=== PATIENT | female | born 1995 | race Caucasian/White ===

== ENCOUNTER 2018-01-03 14:17 | Inpatient (IN) | payer OTHER ==
[2018-01-03] MEDS ORDERED: LIDOCAINE 1% INJ-PF (10 MG/ML) 30 ML SDV ONE ×2 (14:30→19:37)
[2018-01-03] MEDS ORDERED: OXYTOCIN/NORMAL SALINE 20 UNIT/1,000 ML RTUINJ ONE ×2 (14:30→19:37)
[2018-01-03] MEDS ORDERED: MISOPROSTOL 0.2 MG TABLET ONE ×2 (14:30→19:37)
[2018-01-03] MEDS ORDERED: PENICILLIN G-K 5 MILLION UNIT VIAL ONE ×2 (14:30→18:57)
[2018-01-03] MEDS ORDERED: RINGERS SOLUTION,LACTATED 300 ML IV ONE (14:40)
[2018-01-03] MEDS ORDERED: OXYTOCIN/NORMAL SALINE 20 UNIT/1,000 ML RTUINJ IV PRN ×2 (14:40→22:11)
[2018-01-03] MEDS ORDERED: PENICILLIN G POTASSIUM 5,000,000 UNIT in DEXTROSE 5%-WATER 100 ML IV ONE (14:40)
[2018-01-03] MEDS ORDERED: RINGERS SOLUTION,LACTATED 1,000 ML IV PRN ×2 (14:40)
--- NOTE | 2018-01-03 14:47 | Admission Physical ---
Datetime Report Generated by CPN: 01/03/2018 14:46 CURRENT ADMISSION Chief Complaint: Uterine Contractions; Suspected Ruptured Membranes Indication for Induction: PROM Admit Impression : Term, Intrauterine ; No Active Labor; Ruptured Membranes Admit Plan: Admit to Unit; Initiate Labor Induction Protocol Admit Plan- Other: indicates ROM at 300 am today ALLERGIES Medication Allergies: neomycin sulfate (12/31/2015); bacitracin zinc (12/31/2015); polymyxin B sulfate (12/31/2015); hydrocortisone (12/31/2015); neomycin (12/31/2015); bacitracin (12/31/2015); polymyxin B (12/31/2015) OBSTETRICAL HISTORY EDC: 01/16/2018 00:00 : 2 Para: 1 PHYSICAL EXAM General: Normal HEENT: Normal Neurologic: Normal Thyroid: Normal Heart: Normal Lungs: Normal Breast: Normal Back: Normal Abdomen: Normal Genitourinary Exam: Normal Extremities: Normal DTRs: Normal Pelvic Type: Adequate Vital Signs: Reviewed; Within Normal Limits VAGINAL EXAM Dilatation: 2 Effacement: 50 Station: -2 MEMBRANES Pooling: Positive Membranes: Ruptured Amniotic Fluid Color: Clear FETUS A EGA: 38.1 Monitoring: External US FHR- Baseline: 130 Variability: Moderate 6-25bpm Accelerations: 15X15 Decelerations: None FHR Category: Category I Estimated Weight (gm): 3800 Presentation: Vertex Admit Comment: gbs+ INFORMED CONSENT Signature: with User ID: [email or web address]
[2018-01-03 15:25] LABS: ABSOLUTE EOSINOPHILS # (AUTO) 0.1 10^3/uL (0.0-0.6); ABSOLUTE LYMPHOCYTES (AUTO) 1.3 10^3/uL (0.5-4.7); ABSOLUTE MONOCYTES (AUTO) 0.4 10^3/uL (0.1-1.4); ABSOLUTE NEUT (AUTO) 6.8 10^3/uL (1.7-8.2); BASOPHILS % (AUTO) 0.3 % (0-2); EOSINOPHILS % (AUTO) 0.7 % (0-6); HEMATOCRIT 31.3 % (36.0-47.0); HEMOGLOBIN 10.7 g/dL (12.0-15.5); LYMPHOCYTES % (AUTO) 15.1 % (13-45); MEAN CORPUSCULAR HEMOGLOBIN 29.5 pg (27.0-33.4); MEAN CORPUSCULAR HGB CONC 34.3 g/dL (32.0-36.0); MEAN CORPUSCULAR VOLUME 86 fl (80-97); PLATELET COUNT 190 10^3/uL (150-450); RED BLOOD COUNT 3.64 10^6/uL (3.72-5.28); RED CELL DISTRIBUTION WIDTH 12.5 % (11.5-14.0); SEGMENTED NEUTROPHILS % (AUTO) 78.9 % (42-78); TOTAL CELLS COUNTED % (AUTO) 100 %; WHITE BLOOD COUNT 8.7 10^3/uL (4.0-10.5)
[2018-01-03] MEDS: PENICILLIN G POTASSIUM 2,500,000 UNIT in DEXTROSE 5%-WATER 50 ML IV SCH (19:04)
[2018-01-03] MEDS ORDERED: FENTANYL CITRATE INJ/PF 100 MCG/2 ML AMPUL ONE (19:35)
[2018-01-03] MEDS ORDERED: FENTANYL/BUPIVACAINE/NS/PF 300 MCG/150 ML RTUINJ EPI ONE (19:36)
[2018-01-03] MEDS ORDERED: BUPIVACAINE HCL 0.25 % INJ/PF (2.5 MG/1 ML) 30 ML VIAL ONE (19:36)
[2018-01-03] MEDS ORDERED: EPHEDRINE SULFATE INJ 50 MG/1 ML AMPULE ONE (19:36)
[2018-01-03] MEDS ORDERED: NA PHOS,M-B/NA PHOS,DI-BA (ADULT) 133 ML ENEMA PR PRN (22:11)
[2018-01-03] MEDS ORDERED: PROMETHAZINE HCL INJ 25 MG/1 ML VIAL IV PRN (22:11)
[2018-01-03] MEDS ORDERED: ACETAMINOPHEN WITH CODEINE #3 TABLET PO PRN ×2 (22:11)
[2018-01-03] MEDS ORDERED: MAGNESIUM HYDROXIDE SUSP 30 ML UDCUP PO PRN (22:11)
[2018-01-03] MEDS ORDERED: PROMETHAZINE HCL 25 MG SUPP.RECT PR PRN (22:11)
[2018-01-03] MEDS ORDERED: DIPH/PERTUSS(ACELL)/TETANUS VAC/PF 0.5 ML SYR (>=10YO) IM PRN (22:11)
[2018-01-03] MEDS ORDERED: BENZOCAINE/MENTHOL AEROSOL SPRAY 56 ML TOP PRN (22:11)
[2018-01-03] MEDS ORDERED: DIBUCAINE 1% OINTMENT 28 GM TP PRN (22:11)
[2018-01-03] MEDS ORDERED: ACETAMINOPHEN 650 MG SUPP.RECT PR PRN (22:11)
[2018-01-03] MEDS ORDERED: PROMETHAZINE HCL 25 MG TABLET PO PRN (22:11)
[2018-01-03] MEDS ORDERED: MEASLES,MUMPS&RUBELLA VACC/PF 0.5 ML VIAL SUBCUT PRN (22:11)
[2018-01-03] MEDS ORDERED: GLYCERIN/WITCH HAZEL LEAF 1 EACH MED..PAD TP PRN (22:11)
[2018-01-03] MEDS ORDERED: ZOLPIDEM TARTRATE 5 MG TABLET PO PRN (22:11)
[2018-01-03] MEDS ORDERED: DIPHENHYDRAMINE HCL 25 MG CAPSULE PO PRN (22:11)
[2018-01-03] MEDS ORDERED: PSEUDOEPHEDRINE HCL 30 MG TABLET PO PRN (22:11)
[2018-01-03] MEDS ORDERED: IBUPROFEN 800 MG TABLET ONE (23:01)
--- NOTE | 2018-01-04 00:03 | Warning Signs in Babies ---
VOD Warning Signs Datetime Report Generated by [facility]: 01/04/2018 00:03 VOD#608 -Warning Signs in Babies: Needs to be viewed. (01/03/2018 14:19:Mary Cardoza RN)
[2018-01-04] MEDS: PENICILLIN G POTASSIUM 2,500,000 UNIT in DEXTROSE 5%-WATER 50 ML IV SCH ×2 (00:57→03:51)
[2018-01-04] MEDS: IBUPROFEN 800 MG TABLET PO SCH ×3 (05:26→21:24)
--- NOTE | 2018-01-04 07:47 | Delivery Summary ---
Del Sum A-C Datetime Report Generated by CPN: 01/04/2018 07:46 DELIVERY PERSONNEL DELIVERY PERSONNEL: [id number] Delivery Doctor:: Zenaida Hutchison MD Labor and Delivery Nurse:: Mary Cardoza RN Labor and Delivery Nurse:: Shaista Bhatti RN Humanities Division Chair/PREVENTION SPECIALIST: Ximena Meyersa, PREVENTION SPECIALIST MATERNAL INFORMATION Delivery Anesthesia: Epidural Medications After Delivery: Pitocin Drip 20 Units/1000ml NSS Estimated Blood Loss (ml): 200 Maternal Complications: None LABOR SUMMARY EDC: 01/16/2018 00:00 No. Babies in Womb: 1 Attempted: No Labor Anesthesia: Epidural LABOR INFORMATION Reason for Induction: Not Applicable Onset of Labor: 01/03/2018 03:00 Complete Dilatation: 01/03/2018 21:55 Oxytocin: Augmentation Group B Beta Strep: positive Antibiotics # of Doses: 2 Antibiotics Time of Last Dose: 1908 Name of Antibiotic Given: PCN Steroids Given: None Reason Steroids Not Administered: Not Applicable MEMBRANES Membranes Rupture Method: Spontaneous Rupture of Membranes: 01/03/2018 03:00 Length of Rupture (hr): 19.05 Amniotic Fluid Color: Clear Amniotic Fluid Amount: Small Amniotic Fluid Odor: Normal STAGES OF LABOR Stage 1 hr: 18 Stage 1 min: 55 Stage 2 hr: 0 Stage 2 min: 8 Stage 3 hr: 0 Stage 3 min: 4 Total Time in Labor hr: 19 Total Time in Labor min: 7 VAGINAL DELIVERY Episiotomy: None Episiotomy: None Laceration #1: None Laceration #1: None Laceration Extension #1: N/A Laceration Extension #1: N/A Laceration Repair: Not Applicable Laceration Repair: Not Applicable Sponge Count Correct: N/A Sharps Count Correct: N/A CSECTION DELIVERY Primary Indication: N/A Secondary Indication: N/A CSection Incidence: N/A Labor: N/A Elective: N/A CSection Incision: N/A BABY A INFORMATION Delivery Date/Time: 01/03/2018 22:03 Method of Delivery: Vaginal Method of Delivery: Vaginal Born in Route : No : N/A Forceps: N/A Vacuum Extraction: N/A Shoulder Dystocia : No PRESENTATION/POSITION BABY A Presentation: Cephalic Cephalic Presentation: Vertex Vertex Position: Right Occipital Anterior Breech Presentation: N/A PLACENTA INFORMATION BABY A Placenta Delivery Time : 01/03/2018 22:07 Placenta Method of Delivery: Spontaneous Placenta Method of Delivery: Spontaneous Placenta Status: Delivered SCORES BABY A Heart Rate 1 min: >100 bpm Resp Effort 1 min: Good Cry Reflex Irritability 1 min: Cough or Sneeze or Pulls Away Muscle Tone 1 min: Active Motion Color 1 min: Blue/Pale Resuscitation Effort 1 min: Tactile Stimulation SCORE 1 MIN: 8 Heart Rate 5 min: >100 bpm Resp Effort 5 min: Good Cry Reflex Irritability 5 min: Cough or Sneeze or Pulls Away Muscle Tone 5 min: Active Motion Color 5 min: Body Hendrum, Extremities Blue Resuscitation Effort 5 min: Tactile Stimulation SCORE 5 MIN: 9 INFANT INFORMATION BABY A Gestational Age at Delivery: 38.1 Gestational Status: Early Term- 37- 38.6 Weeks Outcome : Liveborn Infant Condition : Stable Sex: Male Infant Sex: Male IDENTIFICATION BABY A Infant Verification Date/Time: 01/03/2018 22:28 ID Band Number: [id number] Mother's Name Verified: Yes Infant RN Verifying : C. Abdonilin, RN Additional Verifying Personnel: D. Shavon WEIGHT/LENGTH BABY A Birthweight (gm): 2570 Infant Birthweight (gm): 2570 Infant Weight (lb): 5 Infant Weight (oz): 11 Infant Length (in): 19.00 Length (cm): 48.26 CORD INFORMATION BABY A No. Cord Vessels: 3 Nuchal Cord : N/A Cord Blood Taken: Yes-For Eval (Mom's Blood Type - or O+) ASSESSMENT BABY A Skin to Skin: Yes Skin to Skin: Yes BABY B INFORMATION : N/A SIGNATURES Signature: Electronically signed by Zenaida Hutchison MD (COUNTS INCLUDE 234 BEDS AT THE [facility]) on 01/03/2018 at 22:18 with User ID: [email or web address]
[2018-01-04 08:22] LABS: HEMATOCRIT 27.7 % (36.0-47.0); HEMOGLOBIN 9.6 g/dL (12.0-15.5); MEAN CORPUSCULAR HEMOGLOBIN 29.8 pg (27.0-33.4); MEAN CORPUSCULAR HGB CONC 34.8 g/dL (32.0-36.0); MEAN CORPUSCULAR VOLUME 86 fl (80-97); PLATELET COUNT 153 10^3/uL (150-450); RED BLOOD COUNT 3.22 10^6/uL (3.72-5.28); RED CELL DISTRIBUTION WIDTH 12.6 % (11.5-14.0); WHITE BLOOD COUNT 9.4 10^3/uL (4.0-10.5)
[2018-01-04] MEDS: LEVOTHYROXINE SODIUM 0.1 MG TABLET PO SCH (08:57)
[2018-01-04] MEDS: SENNOSIDES/DOCUSATE 8.6-50 MG 1 EACH TABLET PO SCH (09:34)
[2018-01-04] MEDS: DOCUSATE SODIUM 100 MG CAPSULE PO SCH ×2 (09:34→17:48)
[2018-01-04] MEDS: PRENATAL VITAMIN W DHA CAPSULE PO SCH (09:35)
[2018-01-04] MEDS: FAMOTIDINE 20 MG TABLET PO SCH ×2 (09:35→21:24)
[2018-01-04] MEDS: FERROUS SULFATE 325 MG TABLET PO SCH ×2 (09:35→17:48)
[2018-01-04] MEDS ORDERED: DILTIAZEM HCL 120 MG CAP.SR.24H PO SCH (10:00)
--- NOTE | 2018-01-04 10:03 | PDOC PROGRESS REPORT ---
Subjective-OB Progress Note for:: 01/04/18 Subjective: reports well, bleeding slowing, pain controlled with current meds. denies need for cardizem-states she has not taken BP meds since last delivery. med d/c'd Physical Exam (OB) Vital Signs: Temp Pulse Resp BP Pulse Ox 97.7 F 74 16 118/84 100 01/04/18 07:40 01/04/18 07:40 01/04/18 07:40 01/04/18 07:40 01/04/18 07:40 - Abdomen Description: Soft, Round Fundal Description: Firm Fundal Height: u/u - u/2 - Abdominal Distension: No distension Tenderness: Nontender - Extremities Lower extremities: Kemar's sign - neg Calf: Normal, Nontender Objective-Diagnostic Laboratory: 01/04/18 08:07 01/03/18 01/03/18 01/04/18 15:07 15:07 08:07 WBC 8.7 9.4 RBC 3.64 L 3.22 L Hgb 10.7 L 9.6 L Hct 31.3 L 27.7 L MCV 86 86 MCH 29.5 29.8 MCHC 34.3 34.8 RDW 12.5 12.6 Plt Count 190 153 Seg Neutrophils % 78.9 H Lymphocytes % 15.1 Monocytes % 5.0 Eosinophils % 0.7 Basophils % 0.3 Absolute Neutrophils 6.8 Absolute Lymphocytes 1.3 Absolute Monocytes 0.4 Absolute Eosinophils 0.1 Absolute Basophils 0.0 Blood Type O POSITIVE Antibody Screen NEGATIVE Assessment and Plan(PN) - Assessment and Plan (1) Delivery normal Is this a current diagnosis for this admission?: Yes (2) Hypothyroidism Is this a current diagnosis for this admission?: Yes - Time Spent with Patient Time with patient: Less than 15 minutes - Disposition Anticipated Discharge: Home Within: within 24 hours
[2018-01-04] MEDS ORDERED: PROMETHAZINE HCL INJ 25 MG/1 ML VIAL IV PRN (10:30)
[2018-01-04] MEDS ORDERED: MEASLES,MUMPS&RUBELLA VACC/PF 0.5 ML VIAL SUBCUT PRN (10:30)
[2018-01-04] MEDS ORDERED: DIPH/PERTUSS(ACELL)/TETANUS VAC/PF 0.5 ML SYR (>=10YO) IM PRN (10:30)
[2018-01-05] MEDS: IBUPROFEN 800 MG TABLET PO SCH ×2 (06:02→13:18)
[2018-01-05] MEDS: PRENATAL VITAMIN W DHA CAPSULE PO SCH (07:52)
[2018-01-05] MEDS: LEVOTHYROXINE SODIUM 0.1 MG TABLET PO SCH (07:52)
[2018-01-05] MEDS: DOCUSATE SODIUM 100 MG CAPSULE PO SCH (07:53)
[2018-01-05] MEDS: SENNOSIDES/DOCUSATE 8.6-50 MG 1 EACH TABLET PO SCH (07:53)
[2018-01-05] MEDS: FAMOTIDINE 20 MG TABLET PO SCH (07:54)
[2018-01-05] MEDS: FERROUS SULFATE 325 MG TABLET PO SCH (07:54)
[2018-01-05 08:01] VITALS: BP 117/68
--- NOTE | 2018-01-05 09:57 | PDOC DISCHARGE SUMMARY ---
Final Diagnosis Discharge Date: 01/05/18 - Final Diagnosis (1) Carrier of group B Streptococcus Is this a current diagnosis for this admission?: Yes (2) Vaginal delivery Is this a current diagnosis for this admission?: Yes (3) Hypothyroidism Is this a current diagnosis for this admission?: Yes Discharge Data - Discharge Medication Home Medications: Levothyroxine Sodium [Synthroid] 200 mcg PO DAILY 12/31/15 Pnv,Calcium 72/Iron/Folic Acid [Pnv Plus Multivit Tab] 1 tab PO DAILY 12/31/15 Diltiazem HCl [Cardizem Cd 120 mg Capsule] 1 cap.sr PO DAILY #30 cap.sr Reason(s) for Admission: PROM Procedures: NST Intrapartum Procedure(s): Spontaneous Vaginal Delivery - Diagnosis Test Laboratory: Temp Pulse Resp BP Pulse Ox 98.1 F 75 18 117/68 100 01/05/18 07:55 01/05/18 07:55 01/05/18 07:55 01/05/18 07:55 01/05/18 07:55 01/03/18 01/04/18 15:07 08:07 RBC 3.64 L 3.22 L Hgb 10.7 L 9.6 L Hct 31.3 L 27.7 L - Discharge information/Instructions Discharge Activity: Balance Activity w/Rest, Pelvic Rest Discharge Diet: Regular Disposition: HOME, SELF-CARE Follow up with: [facility] in: 4, Weeks
== END 2018-01-05 15:08 | disposition home or self-care (01) | DRG 775 ==
LOC: LR 14:17 → 2S 01-04 00:17
PROVIDERS: ADMIT Obstetrics & Gynecology; ATTEND Obstetrics & Gynecology
PROC: 10E0XZZ Delivery of Products of Conception, External Approach (ICD-10-PCS; principal; 2018-01-03)
PROC: 4A1HXCZ Monitoring of Products of Conception, Cardiac Rate, External Approach (ICD-10-PCS; 2018-01-03)
DX: O99.824 Streptococcus B carrier state complicating childbirth (principal); O99.284 Endocrine, nutritional and metabolic diseases complicating childbirth; E03.9 Hypothyroidism, unspecified; Z37.0 Single live birth; Z3A.38 38 weeks gestation of pregnancy
CPT/HCPCS: 36415; 85025; 85027; 86592; 86850; 86900; 86901; 94760; J2540; J2590; J3010; J3490